=== PATIENT | female | born 1995 | race Caucasian/White ===

== ENCOUNTER → 2017-01-13 | Outpatient (CLI) | payer BC, OTHER ==
--- NOTE | 2017-01-14 08:37 | XR ---
EXAMINATION TYPE: XR facial bones complete DATE OF EXAM: 01/13/2017 COMPARISON: NONE HISTORY: Pain on the left side of the face TECHNIQUE: 3 views are submitted FINDINGS: Visualized osseous structures are intact. Nasal septal deviation noted. Mild mucosal thicke efra involving the maxillary sinuses correlate chronic sinusitis. Visualized nasal bone intact. IMPRESSION: No acute process. If symptoms persist consider CT scan.
== END ==
LOC: RADXRMAIN 13:37
PROVIDERS: ATTEND Family Medicine
DX: R22.0 Localized swelling, mass and lump, head (principal)
CPT/HCPCS: 70150

== ENCOUNTER 2017-08-26 07:42 | Emergency (ER) | payer BC, OTHER ==
[2017-08-26 07:51] VITALS: RESP 18
[2017-08-26] MEDS ORDERED: ACETAMINOPHEN TAB 500 MG TAB PO STA (07:59)
[2017-08-26] MEDS ORDERED: IBUPROFEN 600 MG TAB PO STA (07:59)
--- NOTE | 2017-08-26 08:34 | XR ---
EXAMINATION TYPE: XR ankle complete LT, XR foot complete LT DATE OF EXAM: 08/26/2017 CLINICAL HISTORY: Pain after fall injury. TECHNIQUE: Frontal, lateral and oblique images of the left ankle and foot are obtained. COMPARISON: Left foot x-ray February 24, 2016. FINDINGS: There is well-corticated 5 mm fragment from lateral malleolus without soft tissue swelling favoring old avulsion type fracture. There is no convincing evidence for acute fracture or dislocati on left ankle. The ankle mortise appears within normal limits. The overlying soft tissue appears un remarkable. There is no acute fracture or dislocation evident in the left foot. Flexion in distal third through f ifth toes is present. There is varus positioning distal fourth and fifth toes is seen. The joint spac es in the left foot are preserved. Pes planus deformity is redemonstrated. Overlying soft tissue is unremarkable. IMPRESSION: There is no acute fracture or dislocation in the left ankle or foot.
--- NOTE | 2017-08-26 09:18 | ED ---
General Adult HPI - General Chief complaint: Extremity Injury, Lower Stated complaint: fall down steps, left foot injury Time Seen by Provider: 08/26/17 07:55 Source: family, RN notes reviewed, old records reviewed Mode of arrival: ambulatory Limitations: no limitations - History of Present Illness Initial comments: This is a 21-year-old female to the ER for evaluation she presents today for evaluation status post fall. Follow to 3 stairs last night at home. Patient denies any other injury. She is also complaining of sore throat was bothering her for a couple days. No fevers, occasional cough and congestion. No recent travel history no sick contacts. Patient is taking no nothing for pain or sore throat - Related Data Home Medications Medication Instructions Recorded Confirmed Etonogestrel/Ethinyl Estradiol 1 ring VG Q28D 08/26/17 08/26/17 [Nuvaring Vaginal Ring] Ibuprofen [Motrin] 600 mg PO Q8HR PRN 08/26/17 08/26/17 Allergies Allergy/AdvReac Type Severity Reaction Status Date / Time No Known Allergies Allergy Verified 08/26/17 08:19 Review of Systems ROS Statement: Those systems with pertinent positive or pertinent negative responses have been documented in the HPI. ROS Other: All systems not noted in ROS Statement are negative. Past Medical History Past Medical History: No Reported History History of Any Multi-Drug Resistant Organisms: None Reported Past Surgical History: No Surgical Hx Reported Past Psychological History: No Psychological Hx Reported Smoking Status: Never smoker Past Alcohol Use History: None Reported Past Drug Use History: None Reported General Exam - General Exam Comments Initial Comments: Left great toe tenderness Limitations: no limitations General appearance: alert, in no apparent distress Head exam: Present: atraumatic, normocephalic, normal inspection Eye exam: Present: normal appearance, PERRL, EOMI. Absent: scleral icterus, conjunctival injection, periorbital swelling ENT exam: Present: normal exam, mucous membranes moist Neck exam: Present: normal inspection. Absent: tenderness, meningismus, lymphadenopathy Respiratory exam: Present: normal lung sounds bilaterally. Absent: respiratory distress, wheezes, rales, rhonchi, stridor Cardiovascular Exam: Present: regular rate, normal rhythm, normal heart sounds. Absent: systolic murmur, diastolic murmur, rubs, gallop, clicks GI/Abdominal exam: Present: soft, normal bowel sounds. Absent: distended, tenderness, guarding, rebound, rigid Extremities exam: Present: normal inspection, full ROM, normal capillary refill. Absent: tenderness, pedal edema, joint swelling, calf tenderness Back exam: Present: normal inspection Neurological exam: Present: alert, oriented X3, CN II-XII intact Psychiatric exam: Present: normal affect, normal mood Skin exam: Present: warm, dry, intact, normal color. Absent: rash Course Vital Signs 08/26/17 07:47 Temperature 99.3 F Pulse Rate 107 H Respiratory 18 Rate Blood Pressure 137/58 O2 Sat by Pulse 100 Oximetry - Reevaluation(s) Reevaluation #1: 08/26/17 09:17 Patient's able to ambulate Medical Decision Making - Medical Decision Making 21 female the ER for evaluation of foot pain. Left foot pain after falling on stairs last night. Patient also complains of sore throat. Strep and strep is negative, x-rays are negative for traumatic injury. Patient feeling better with Motrin and Tylenol can be discharged home to return to work today with no restriction - Lab Data Lab Results 08/26/17 Range/Units 08:24 Group A Strep Rapid Negative (Negative) - Radiology Data Radiology results: report reviewed (X-ray left foot and ankle negative for traumatic injury), image reviewed Disposition Clinical Impression: Contusion of left foot, Viral pharyngitis Disposition: HOME SELF-CARE Condition: Good Instructions: Foot Contusion (ED), Pharyngitis (ED) Referrals: Gilberto Acosta DO [Primary Care Provider] - 1-2 days
[2017-08-26 09:33] VITALS: BP 109/52; PULSE 70; TEMP 99.5
== END 2017-08-26 09:33 | disposition home or self-care (01) ==
LOC: EC 07:42
DX: S90.32XA Contusion of left foot, initial encounter (principal); J02.8 Acute pharyngitis due to other specified organisms; Z79.3 Long term (current) use of hormonal contraceptives; W10.8XXA Fall (on) (from) other stairs and steps, initial encounter; Y92.009 Unspecified place in unspecified non-institutional (private) residence as the place of occurrence of the external cause
CPT/HCPCS: 87081; 87430; 99284

== ENCOUNTER → 2017-10-07 | Outpatient (CLI) | payer BC ==
--- NOTE | 2017-10-07 10:26 | MR ---
EXAMINATION TYPE: MR brain wo/w con DATE OF EXAM: 10/07/2017 COMPARISON: NONE HISTORY: Headache / Disorder of facial nerve CONTRAST: Performed utilizing 8.5 mL intravenous Gadavist gadolinium contrast. TECHNIQUE: Multiplanar, multiecho imaging on a 3.0 Sandy magnet is performed through the brain. Stud y is performed within 24 hours of arrival to the hospital. The craniovertebral junction is normal. The pituitary is normal. Diffusion-weighted imaging is performed. No abnormal hyperintensity is present to suggest an acute i ntracranial infarct or acute ischemic change. Signal through the brain appears normal. Ventricles and sulci are appropriate for the patient age. No suspicious enhancement is evident. No suspicious enhancement along the facial nerve is evident. IMPRESSIONS: 1. No acute intracranial process.
== END | disposition home or self-care (01) ==
LOC: RADMRIMAIN 09:33
PROVIDERS: ATTEND Ophthalmology
DX: G43.809 Other migraine, not intractable, without status migrainosus (principal)
CPT/HCPCS: 70553; A9581

== ENCOUNTER → 2021-08-03 | Outpatient (CLI) | payer BC ==
[2021-08-04 02:20] LABS: Basophils # (A) 0.03 X 10*3/uL (0.00-0.10); Basophils % (A) 0.5 %; Eosinophils # (A) 0.14 X 10*3/uL (0.04-0.35); Eosinophils % (A) 2.1 %; HCT 47.3 % (37.2-46.3); HGB 15.4 g/dL (12.0-15.0); Immature Grans, Automated 0.3 %; Lymphocytes % (A) 31.6 %; MCH 29.9 pg (27.0-32.0); MCHC 32.6 g/dL (32.0-37.0); MCV 91.8 fL (80.0-97.0); Mean Platelet Volume 11.5 fL (9.5-12.2); Monocytes # (A) 0.52 X 10*3/uL (0.20-1.00); Monocytes % (A) 7.8 %; NRBC Per 100 WBC 0 /100 WBCS (0.0-0.0); Neutrophils # (A) 3.84 X 10*3/uL (1.80-7.70); Neutrophils % (A) 57.7 %; Platelet Count 243 X 10*3/uL (140-440); RBC 5.15 X 10*6/uL (4.10-5.20); WBC 6.65 X 10*3/uL (4.50-10.00)
== END | disposition home or self-care (01) ==
LOC: LABWHC1 15:52
PROVIDERS: ATTEND Ophthalmology
DX: H80.90 Unspecified otosclerosis, unspecified ear (principal)
CPT/HCPCS: 36415; 85025; 86038; 86592; 86780

== ENCOUNTER → 2023-02-02 | Outpatient (CLI) | payer BC ==
--- NOTE | 2023-02-02 11:46 | XR ---
EXAMINATION TYPE: XR shoulder complete LT DATE OF EXAM: 02/02/2023 11:39 AM INDICATION: Patient age:Female; 27 years old; Reason for study: M25.512 Pain left shoulder; COMPARISON: None TECHNIQUE: The left shoulder was examined in AP, internally rotated and scapular Y projections. . FINDINGS: No evidence of acute osseous pathology, joint dislocation, or soft tissue swelling. The remaining por tions of the visualized chest are unremarkable. IMPRESSION: No acute osseous pathology.
== END | disposition home or self-care (01) ==
LOC: RADXRMAIN 11:25
PROVIDERS: ATTEND Nurse Practitioner Family
DX: M25.512 Pain in left shoulder (principal)

== ENCOUNTER → 2023-04-20 | Outpatient (CLI) | payer BC ==
[2023-04-21 03:00] LABS: ALT 19 U/L (8-44); AST 13 U/L (13-35); Albumin 4.5 d/dL (3.8-4.9); Albumin/Globulin Ratio 1.67 Ratio (1.60-3.17); Alkaline Phosphatase 77 U/L (41-126); BUN/Creat Ratio 15.56 Ratio (12.00-20.00); C Reactive Protein <0.30 mg/dL (0.00-0.80); Calcium 9.8 mg/dL (8.7-10.3); Carbon Dioxide 26.3 mmol/L (21.6-31.8); Chloride 106 mmol/L (96-109); Globulin 2.7 d/dL (1.6-3.3); Glucose 98 mg/dL (70-110); Potassium 4.2 mmol/L (3.5-5.5); Sodium 145 mmol/L (135-145); Total Bilirubin 0.2 mg/dL (0.3-1.2); Total Protein 7.2 d/dL (6.2-8.2)
[2023-04-21 03:48] LABS: Basophils # (A) 0.04 X 10*3/uL (0.00-0.10); Basophils % (A) 0.5 %; Eosinophils # (A) 0.19 X 10*3/uL (0.04-0.35); Eosinophils % (A) 2.1 %; HCT 42.8 % (37.2-46.3); HGB 14.4 d/dL (12.0-15.0); Lymphocytes # (A) 2.86 X 10*3/uL (0.90-5.00); Lymphocytes % (A) 32.4 %; MCH 30.2 pg (27.0-32.0); MCHC 33.6 d/dL (32.0-37.0); MCV 89.7 FL (80.0-97.0); Mean Platelet Volume 10.6 FL (9.5-12.2); Monocytes # (A) 0.68 X 10*3/uL (0.20-1.00); Monocytes % (A) 7.7 %; NRBC Per 100 WBC 0 X 10*3/uL (0.00-0.01); Neutrophils # (A) 5.05 X 10*3/uL (1.80-7.70); Neutrophils % (A) 57.1 %; Platelet Count 366 X 10*3/uL (140-440); RBC 4.77 X 10*6/uL (4.10-5.20); RDW 12.5 % (11.5-14.5); WBC 8.84 X 10*3/uL (4.50-10.00)
== END | disposition home or self-care (01) ==
LOC: LABWHC1 16:29
PROVIDERS: ATTEND Internal Medicine Gastroenterology
DX: K52.9 Noninfective gastroenteritis and colitis, unspecified (principal)
CPT/HCPCS: 36415; 80053; 82784; 83516; 85025; 86140

== ENCOUNTER → 2023-04-20 | Outpatient (CLI) | payer BC ==
--- NOTE | 2023-04-20 16:57 | P.SLEEP ---
History of Present Illness DATE: 04/20/2023 CONSULTATION/NEW PATIENT EVALUATION HISTORY OF PRESENT ILLNESS/SLEEP-WAKE EVALUATION: 27-year-old lady had been evaluated in the sleep center for possible obstructive sleep apnea hypopnea syndrome. SLEEP SCHEDULE: Usually sleep schedule from midnight to 89 AM 7 days a week. FALLING ASLEEP: Patient has difficulties with falling asleep, has TV set and bedroom. DURING SLEEP: Patient sleeps in different positions with snoring, grinding teeth, episodes of palpitations and restless legs. Patient wakes up from sleep more than 3 times with the 1 or more episodes of nocturia. Positive history history of hypnogogical hallucinations, sleep off paralysis and cataplexy. DURING THE DAY/WAKE STATE: In the morning patient wake up tired, has difficulties to pay attention, falling asleep during the day. Positive history of problems with memory and concentration. [place] sleepiness scale is 6. Patient usually takes nap at noon. PAST MEDICAL HISTORY: Eileen-Danlos syndrome, ADHD, history of palpitation. PAST SURGICAL HISTORY: [place] tooth removed, IUD. MEDICATIONS: Valcyclovir. SOCIAL HISTORY: Negative for smoking, alcohol consumption occasional. FAMILY HISTORY: Hypertension, heart problems, diabetes, sleep apnea, cancer, mental illness. REVIEW OF SYSTEMS: Snoring, multiple awakenings from sleep. No fevers. No double vision. No recent chest pain. No shortness of breath. No abdominal pain. No bleeding episodes. No blood in urine. No seizure episodes. PHYSICAL EXAMINATION: GENERAL: A pleasant patient without any distress. VITAL SIGNS: BP 107/73 , HR 73 , RR 16 , weight 243.6 pounds, height 5 foot 6-3/4 inches, body mass index 38.4 . HEENT: PERRLA, EOMI. Evaluation of oropharynx showed tongue protrudes midline, low position of soft palate Mallampati 23. NECK: Supple. No JVD. Thyroid is not palpable. 15.5 inches in circumference. LUNGS: Clear to percussion and to auscultation. Good air exchange. No wheezing or rhonchi. HEART: S1, S2 regular. No murmurs, gallops or rubs. ABDOMEN: Soft and nontender. Bowel sounds are present. No organomegaly appreciated. EXTREMITIES: No clubbing or cyanosis. CANDY DEPARTMENT MANAGER: Awake, alert, and oriented x3. Cranial nerves 2 to 7 intact. There is no fasciculation or atrophy noted. No focal deficits observed. ASSESSMENT: 1. Snoring, multiple awakenings from sleep, moderately low position of soft palate, episodes of sleepiness during the day. Obstructive sleep apnea hypopnea syndrome. 2. Eileen-Danlos syndrome. 3. History of palpitations episodes. 4. History of ADHD. 5 restless leg symptoms. 6 . 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 7. Positive history of sleep off paralysis. 8. Positive history of neurological hallucinations. 9 . Obesity, body mass index 38.4. PLAN: 1. Polysomnography for evaluation of patient's breathing during sleep. 2. CPAP/BiPAP titration if sleep study confirms obstructive sleep apnea- hypopnea syndrome. 3. Preferable position during sleep on the side. 4. No driving if patient feels any sleepiness. Patient is aware of civil and criminal liability for unsafe driving. 5. Sleep hygiene with regular sleep time for at least 7.5-8 hours. 6. Watching and losing weight. Thank you very much for referring this patient for consultation. Sincerely, Wilfrid Stroud MD, PhD, FAASM. Diplomat of [place] [employer], Sleep Medicine Board by [place] [employer] [place] [employer] Directional Survey Drafter of [facility] [place] Past Medical History Past Medical History: No Reported History History of Any Multi-Drug Resistant Organisms: None Reported Past Surgical History: No Surgical Hx Reported Additional Past Surgical History / Comment(s): wisdom teeth Past Psychological History: No Psychological Hx Reported Past Alcohol Use History: Occasional Past Drug Use History: None Reported Medications and Allergies Home Medications Medication Instructions Recorded Confirmed Type Etonogestrel/Ethinyl Estradiol 1 ring VAGINAL Q28D 08/26/17 05/10/18 History [Nuvaring Vaginal Ring] Ibuprofen [Motrin] 800 mg PO Q4H PRN 05/10/18 05/10/18 History Allergies Allergy/AdvReac Type Severity Reaction Status Date / Time No Known Allergies Allergy Verified 05/10/18 09:18 Sleep Note - Sleep Note Sleep Note: Temperature: Pulse Rate: Respiratory Rate: Blood Pressure: SpO2: Height: Weight: BMI: Neck Circumference:
== END ==
LOC: 3 N SLEEP 15:29
PROVIDERS: ATTEND Internal Medicine
DX: G47.33 Obstructive sleep apnea (adult) (pediatric) (principal); Q79.60 Ehlers-Danlos syndrome, unspecified; F90.9 Attention-deficit hyperactivity disorder, unspecified type; E66.9 Obesity, unspecified; G47.53 Recurrent isolated sleep paralysis; G25.81 Restless legs syndrome; R44.3 Hallucinations, unspecified; Z68.38 Body mass index [BMI] 38.0-38.9, adult; Z86.79 Personal history of other diseases of the circulatory system
CPT/HCPCS: 99211

== ENCOUNTER → 2023-06-10 | Outpatient (CLI) | payer BC ==
--- NOTE | 2023-06-13 17:04 | P.PCN ---
Description of Procedure: CLINICAL: A home sleep apnea test has been done for confirmation of possible obstructive sleep apnea-hypopnea syndrome. DESCRIPTION OF PROCEDURE: RESULTS: Recording time was 9 hours 58 minutes. Evaluation time was 9 hours 46 minutes. Evaluation time is sufficient for making conclusion about results of the test. Raw data of sleep recording has been reviewed and is adequate. Respiratory channel showed 1 apneas and 11 hypopneas. Apnea-hypopnea index was 1.2 per hour. Pulse rate in the range between minimum 46, maximum 91, average 64 by computer calculation. Lowest desaturation was 88%. IMPRESSION: 1. No significant respiratory abnormalities have been documented, normal oxygenation during sleep. Please see other impressions from consultation. PLAN: 1. I will see patient for follow-up visit to discuss results of the test and recommendations. 2. We may consider multiple sleep latency test because patient has history of questionable cataplexy, sleep paralysis. 3. Watching weight. 4. Sleep hygiene with regular time in bed for at least 8 hours. 5. No driving if feeling any sleepiness. Thank you very much for allowing me to participate in the management of your patient. Sincerely, Wilfrid Stroud MD, PhD, FAASM Diplomat of [place] [employer] Sleep Medicine Board of [place] [employer] Exhibit Technician of [facility] [place]
== END ==
LOC: 3 N SLEEP 12:23
PROVIDERS: ATTEND Internal Medicine
DX: G47.33 Obstructive sleep apnea (adult) (pediatric) (principal)

== ENCOUNTER → 2023-08-04 | Outpatient (CLI) | payer BC ==
--- NOTE | 2023-08-04 14:46 | P.PN ---
Subjective DATE: 02/14/2024 FOLLOW UP VISIT. Patient returned to sleep center for follow-up visit to discuss results of sleep testing and following plan. I discuss results of home sleep apnea test with patient in details. No significant respiratory abnormalities have been documented during the test. Normal oxygenation during the sleep. Patient co ntinued to feel significant sleepiness during the day.. .[place] sleepiness scale is increased to 12. MEDICATIONS:1. Valtrex 2. Intrauterine device During physical exam: GENERAL: A pleasant patient without any distress. VITAL SIGNS: BP 124/78, HR 78, RR 16 , weight 237.2, temperature 97.5, oxygen saturation at room air 100% . HEENT: PERRLA, EOMI. NECK: Supple. No JVD. LUNGS: Clear to percussion and to auscultation. Good air exchange. No wheezing or rhonchi. HEART: S1, S2 regular. ABDOMEN: Soft and nontender. EXTREMITIES: No clubbing or cyanosis. PRESIDENT + PUBLISHER: Awake, alert, and oriented x3. No focal deficit. Impressions: 1. No significant respiratory abnormalities have been documented during home sleep apnea test. Normal oxygenation during sleep 2. Patient continued to have symptoms of significant excessive daytime sleepiness with increased [place] Sleepiness Scale. Positive history of questionable cataplexy and sleep paralysis and hypnogogical hallucinations. Differential diagnosis include possible narcolepsy type I. 3. History of ADHD. 4. History of Eileen-Danlos syndrome. 5. History of restless leg symptoms. 6. Obesity. Plan: 1. Multiple sleep latency test for objective for ablation symptoms of excessive daytime sleepiness for differential diagnosis with possible narcolepsy, also to check for possible periodic limb movements. 2. Sleep hygiene with regular time in bed for at least 8 hours. 3. Following plan after reviewing sleep study. 4. Precautions related to driving. No driving if feel any sleepiness. Patient is aware about civil and criminal liability for unsafe driving, promised to follow recommendations. 5. No driving if feel any sleepiness. Thank you very much for allowing me to participate in the management of your patient. Wilfrid Stroud MD, PhD, FAASM. Diplomat of [place] [employer], Sleep Medicine Board by [place] [employer] Survey Methodologist of [facility] [place]
== END ==
LOC: 3 N SLEEP 14:18
PROVIDERS: ATTEND Internal Medicine
DX: G47.10 Hypersomnia, unspecified (principal); E66.9 Obesity, unspecified; G25.81 Restless legs syndrome; F90.9 Attention-deficit hyperactivity disorder, unspecified type; Z87.39 Personal history of other diseases of the musculoskeletal system and connective tissue
CPT/HCPCS: 99212

== ENCOUNTER → 2024-10-16 | Outpatient (CLI) | payer OTHER ==
[2024-10-16 18:30] LABS: Basophils # (A) 0.06 X 10*3/uL (0.00-0.10); Basophils % (A) 0.7 %; Eosinophils # (A) 0.14 X 10*3/uL (0.04-0.35); Eosinophils % (A) 1.7 %; HCT 44.8 % (37.2-46.3); HGB 14.3 g/dL (12.0-15.0); Lymphocytes % (A) 31.5 %; MCH 29.1 pg (27.0-32.0); MCHC 31.9 g/dL (32.0-37.0); MCV 91.2 FL (80.0-97.0); Mean Platelet Volume 10.1 FL (9.5-12.2); Monocytes # (A) 0.62 X 10*3/uL (0.20-1.00); Monocytes % (A) 7.5 %; NRBC Per 100 WBC 0 X 10*3/uL (0.00-0.01); Neutrophils # (A) 4.82 X 10*3/uL (1.80-7.70); Neutrophils % (A) 58.4 %; Platelet Count 339 X 10*3/uL (140-440); RBC 4.91 X 10*6/uL (4.10-5.20); RDW 12.5 % (11.5-14.5); WBC 8.26 X 10*3/uL (4.50-10.00)
[2024-10-16 18:56] LABS: ALT 31 U/L (8-44); AST 26 U/L (13-35); Albumin 4.4 g/dL (3.8-4.9); Albumin/Globulin Ratio 1.47 Ratio (1.60-3.17); Alkaline Phosphatase 87 U/L (41-126); BUN/Creat Ratio 18.62 Ratio (12.00-20.00); Blood Urea Nitrogen 14.9 mg/dL (9.0-27.0); Calcium 9.4 mg/dL (8.7-10.3); Chloride 106 mmol/L (96-109); Chol/HDL Ratio 3.18 Ratio; Glucose 99 mg/dL (70-110); Iron 113 UG/DL (50-170); LDL Cholesterol,Calculated 84.3 mg/dL (0.0-131.0); Potassium 4.8 mmol/L (3.5-5.5); Sodium 140 mmol/L (135-145); Total Bilirubin 0.4 mg/dL (0.3-1.2); Total Protein 7.4 g/dL (6.2-8.2)
== END | disposition home or self-care (01) ==
LOC: LABWHC1 15:36
PROVIDERS: ATTEND Nurse Practitioner Family
DX: E66.812 Obesity, class 2 (principal); G47.10 Hypersomnia, unspecified; Z68.38 Body mass index [BMI] 38.0-38.9, adult
CPT/HCPCS: 36415; 80053; 80061; 82306; 83036; 83525; 83540; 84439; 84443; 84481; 85025; 86038; 86140

== ENCOUNTER → 2024-10-19 | Outpatient (CLI) | payer OTHER ==
--- NOTE | 2024-10-19 08:06 | USB ---
Reason for Exam: Clinical finding. Indicated Problems: Lump or thickening of the right side for 6 Month(s). Patient History: Menarche at age 14. Patient has no children. Maternal cousin had breast cancer, age 38. Maternal aunt had breast cancer, age 35. Maternal grandmother had colorectal cancer. Paternal grandfather had colorectal cancer. Technique: Method: Whole Breast Handheld. Doppler: Color. Patient Position: Supine. Findings: The whole breast of the right breast, the periareolar of the right breast, the axilla of the right breast and the retroareolar of the right breast were scanned. Electronically signed and approved by: Mariano Reyes M.D. Radiologis
== END | disposition home or self-care (01) ==
LOC: RADUSWWP 07:36
PROVIDERS: ATTEND Family Medicine
DX: N63.13 Unspecified lump in the right breast, lower outer quadrant (principal); Z80.3 Family history of malignant neoplasm of breast

== ENCOUNTER → 2024-11-07 | Outpatient (CLI) | payer OTHER ==
--- NOTE | 2024-11-07 08:32 | US ---
EXAMINATION TYPE: US carotid duplex BILAT DATE OF EXAM: 11/07/2024 COMPARISON: NONE CLINICAL INDICATION: Female, 29 years old with history of [id number] DISORDER OF EAR,BILATERAL; Patient s tates she hears her heartbeat in her ears and loses vision for short periods of time. Additional History: .... TECHNIQUE: Grayscale, color Doppler and spectral Doppler evaluation of the bilateral carotid systems and vertebral arteries. Indirect Doppler criteria was utilized. FINDINGS: EXAM MEASUREMENTS: RIGHT: Peak Systolic Velocity (PSV) cm/sec ----- Right CCA: 107.0 ----- Right ICA: 83.6 ----- Right ECA: 89.7 ICA/CCA ratio: 0.8 RIGHT: End Diastole cm/sec ----- Right CCA: 24.1 ----- Right ICA: 34.3 ----- Right ECA: 9.5 LEFT: Peak Systolic Velocity (PSV) cm/sec ----- Left CCA: 117.3 ----- Left ICA: 78.7 ----- Left ECA: 102.7 ICA/CCA ratio: 0.7 LEFT: End Diastole cm/sec ----- Left CCA: 23.6 ----- Left ICA: 29.2 ----- Left ECA: 9.6 VERTEBRALS (direction of flow): Right Vertebral: Antegrade Left Vertebral: Antegrade Rhythm: Normal HEAD GREENSKEEPER NOTES: No plaque or elevated velocities. Color Doppler imaging shows patency with blood flow throughout the carotid artery. Spectral waveforms are within normal limits. IMPRESSION: Right: No hemodynamically significant stenosis. Left: No hemodynamically significant stenosis. Criteria for Assigning % of Stenosis / Diameter reduction (Estimation based on the indirect measurements of the internal carotid artery velocities (ICA PSV). 1. Normal (no stenosis)=ICA PSV < 180 cm/s: ratio < 2.0: ICA EDV<40 cm/s. 2. Less than 50% stenosis=ICA PSV < 180 cm/s: ratio < 2.0: ICA EDV<40 cm/s. 3. 50 to 69% stenosis=ICA PSV of 180 to 230 cm/s: ration 2.0 ? 4.0: ICA EDV 40-100 cm/s. PSV 125-180 cm/sec and ICA/CCA PSV Ratio ? 2.0 is also consistent with 50-69% stenosis 4. Greater than 70% stenosis to near occlusion= ICA PSV > 230 cm/s: ratio > 4.0: ICA EDV > 100 cm/s. 5. Near occlusion= ICA PSV velocities may be low or undetectable: variable ratio and ICA EDV. 6. Total occlusion=unable to detect flow. [facility], , 11/07/2024 8:30 AM
--- NOTE | 2024-11-07 09:16 | MR ---
EXAMINATION TYPE: MR brain and iac wo/w con DATE OF EXAM: 11/07/2024 7:44 AM COMPARISON: MRI brain 10/07/2017 CLINICAL INDICATION: Female, 29 years old with history of H93.8X3 DISORDERS OF EAR, BILATERAL, Sudden , intense head pressure accompanied with vision loss, hearing loss and ear ringing TECHNIQUE: Multiplanar, multisequence images of the brain and brainstem were acquired before and aft er administration of 11ml cc Gadobutrol. Diffusion weighted imaging was performed. Additional cone d-down sequences through the internal auditory canals and posterior cranial fossa before and after IV contrast administration. FINDINGS: Diffusion weighted images demonstrate no evidence of an acute ischemic lesion in the brain. T2/FLAIR weighted sequences show no white matter signal abnormality. Midline structures show some possible enlargement of the posterior pituitary and contiguous thickenin g of the pituitary stalk just above the gland to 3.5 mm. The craniocervical junction is normal. Normal brain volume and ventricular caliber. There is no evidence of an acute intracranial hemorrhage, infarct, mass, mass-effect or an extra-axia l fluid collection. There is no cerebellopontine angle mass. The right AICA forms a loop partially entering the right internal auditory canal. The internal audit ory canals are otherwise symmetric. Brainstem and skull base abnormalities are not seen. Post contrast images demonstrate no other evidence of pathologic enhancement in the posterior crania l fossa or the internal auditory canals. There is no abnormal enhancement of the labyrinths. There is slight rightward nasal septal deviation. Scattered mild mucosal thickening ethmoid air cells . Globes appear intact. IMPRESSION: 1. Possible slight enlargement of the posterior pituitary and with contiguous thickening of the pitui tary stalk above the gland. Thickening up to 3.5 mm. Some differential considerations include but are not limited to Langerhans cell histiocytosis, neurosarcoidosis, and lymphocytic hypophysitis. Sequel a of meningitis is also possible. Neoplastic etiology considered less likely at this time. Further cl inical correlation recommended. 2. No acute intracranial abnormality or enhancing lesions. 3. Unremarkable acoustic MRI. 4. Mild chronic ethmoid sinus disease. [facility], , 11/07/2024 9:14 AM
== END | disposition home or self-care (01) ==
LOC: RADMRIMAIN 06:33
PROVIDERS: ATTEND Family Medicine
DX: H93.8X3 Other specified disorders of ear, bilateral (principal); J32.2 Chronic ethmoidal sinusitis
CPT/HCPCS: 93880; 70553; A9585